=== PATIENT | female | born 1950 | race Caucasian/White ===

== ENCOUNTER 2019-07-12 10:35 | Inpatient (IN) | payer OTHER ==
[2019-07-12] MEDS ORDERED: KETOROLAC 30 MG/ML INJ ONE (11:08)
[2019-07-12 11:22] LABS: Absolute Lymphocytes (CBC) 1.2 K/uL (0.7-4.9); Basophils % 0.7 % (0-1.3); Hematocrit 40.8 % (36.0-45.0); Lymphocytes % 17.2 % (15.3-44.8); MPV 9.9 fL (7.6-11.3); RBC Red Blood Cell Count 4.47 M/uL (3.86-4.86)
[2019-07-12 11:31] LABS: Protime INR 0.97
--- NOTE | 2019-07-12 11:32 | RAD REPORT ---
EXAM DESCRIPTION: RAD - Chest Single View - 07/12/2019 11:26 am CLINICAL HISTORY: CHEST PAIN Chest pain. COMPARISON: No comparisons FINDINGS: Portable technique limits examination quality. The lungs are grossly clear. The heart is normal in size. No displaced fractures. IMPRESSION: No acute intrathoracic process suspected.
[2019-07-12 11:51] LABS: Albumin 3.5 g/dL (3.4-5.0); Bilirubin Direct 0.1 mg/dL (0-0.2); Bilirubin Total 0.4 mg/dL (0.2-1.0); Magnesium 2.2 mg/dL (1.8-2.4); Potassium 3.7 mmol/L (3.5-5.1); Protein, Total 7.5 g/dL (6.4-8.2)
[2019-07-12 11:53] LABS: Troponin (Emerg Dept Use Only) 0.65 ng/mL (0.0-0.045)
--- NOTE | 2019-07-12 12:26 | ER ---
Nurse's Notes [facility] Name: Carolyn Ortega Age: 69 yrs Sex: Female : 1950 Arrival Date: 07/12/2019 Time: 10:40 Bed 6 Private MD: Diagnosis: Non-ST elevation (NSTEMI) myocardial infarction;Acute Coronary Syndrome Presentation: 07/12 10:53 Presenting complaint: Patient states: got some upsetting news while at the bank and iw started having left sided chest pain about 35 minutes ago, feels like squeezing pain , no cardiac history. Transition of care: patient was not received from another setting of care. Onset of symptoms was July 12, 2019. Risk Assessment: Do you want to hurt yourself or someone else? Patient reports no desire to harm self or others. Initial Sepsis Screen: Does the patient meet any 2 criteria? No. Patient's initial sepsis screen is negative. Does the patient have a suspected source of infection? No. Patient's initial sepsis screen is negative. Care prior to arrival: None. 10:53 Method Of Arrival: Wheelchair iw 10:53 Acuity: DOMENICO 2 iw Triage Assessment: 10:51 General: Appears in no apparent distress. comfortable, obese, Behavior is cooperative, bp appropriate for age, anxious. Pain: Complains of pain in left lateral anterior chest. EENT: No deficits noted. Neuro: No deficits noted. Cardiovascular: Rhythm is sinus rhythm. Respiratory: No deficits noted. GI: No signs and/or symptoms were reported involving the gastrointestinal system. : No signs and/or symptoms were reported regarding the genitourinary system. Derm: No deficits noted. Musculoskeletal: No deficits noted. Historical: - Allergies: 11:00 PENICILLINS; iw 11:00 Sulfa (Sulfonamide Antibiotics); iw 11:00 Iodine; iw 11:00 benzocaine; iw 11:00 Hydrocodone-Acetaminophen; iw - Home Meds: 11:00 Tresiba FlexTouch U-100 100 unit/mL (3 mL) subcutaneous inpn [Active]; aspirin 81 mg iw Oral TbEC 1 tab once daily [Active]; levothyroxine 88 mcg tab 1 tab once daily [Active]; - PMHx: 11:00 Diabetes - IDDM; Hypothyroidism; iw - PSHx: 11:00 Hysterectomy; shoulder; iw - Immunization history:: Adult Immunizations not up to date. - Coronavirus screen:: The patient has NOT traveled to [place] in the past 14 days. Proceed with normal triage process as indicated. - Social history:: Smoking status: Patient denies any tobacco usage or history of. - Ebola Screening: : Patient negative for fever greater than or equal to 101.5 degrees Fahrenheit, and additional compatible Ebola Virus Disease symptoms Patient denies exposure to infectious person Patient denies travel to an Ebola-affected area in the 21 days before illness onset No symptoms or risks identified at this time. Screenin:00 Abuse screen: Denies threats or abuse. Denies injuries from another. Nutritional bp screening: No deficits noted. Tuberculosis screening: No symptoms or risk factors identified. Fall Risk None identified. Assessment: 11:00 General: SEE TRIAGE NOTE. Pain: Pain does not radiate. Pain began suddenly. bp 12:22 Reassessment: VS STABLE ON MONITOR. PT STATES CP LIKELY STRESS RELATED. bp 12:48 Reassessment: ADMIT MD AT B/S. bp 13:50 Reassessment: B/S ECHO IN PROCESS. ADMIT IN PROCESS. PT ASYMPTOMATIC AT THIS TIME. bp 15:35 Reassessment: ALL CURRENT ORDERS COMPLETED. ADMIT IN PROCESS, ORDERS PENDING. NO S/S bp ACUTE DISTRESS AT THIS TIME. 16:08 Reassessment: ADMIT COMPLETE. PT BERNY. bp Vital Signs: 10:51 BP 156 / 103; Pulse 74; Resp 13; Temp 98; Pulse Ox 100% ; Weight 99.79 kg; bp 12:21 BP 150 / 88; Pulse 77; Resp 15; Pulse Ox 98% ; bp 13:50 BP 149 / 97; Pulse 70; Resp 17; Pulse Ox 98% ; bp 15:34 BP 130 / 86; Pulse 80; Resp 21; Pulse Ox 100% ; bp 16:07 BP 141 / 92; Pulse 59; Resp 18; Pulse Ox 97% ; bp ED Course: 10:40 Patient arrived in ED. fj1 10:45 Greg Parisi, ANIRUDH is Primary Nurse. bp 10:51 Arm band placed on. bp 10:52 Eyal Espitia MD is Attending Physician. kdr 10:57 Triage completed. iw 11:00 Patient has correct armband on for positive identification. Placed in gown. Bed in low bp position. Call light in reach. Side rails up X2. electronic device monitor on. Pulse ox on. NIBP on. 11:05 EKG done, by medical imaging technologist. reviewed by Eyal Espitia MD. at1 11:10 Inserted saline lock: 22 gauge in right forearm, using aseptic technique. Blood bp collected. Patient maintains SpO2 saturation greater than 95% on room air. 12:24 Opal Gutiérrez MD is Hospitalizing Provider. kdr 15:37 No provider procedures requiring assistance completed. Patient admitted, IV remains in bp place. Administered Medications: 11:10 Drug: TORadol - Ketorolac 15 mg Route: IVP; Site: right forearm; bp 12:35 Follow up: Response: Pain is decreased bp 12:47 Drug: Lopressor 25 mg Route: PO; bp 15:38 Follow up: Response: No adverse reaction bp 12:48 Drug: Aspirin Chewable Tablet 324 mg Route: PO; bp 15:38 Follow up: Response: No adverse reaction bp Outcome: 12:25 Decision to Hospitalize by Provider. kdr 16:08 Admitted to Tele accompanied by tech, via wheelchair, room 414, with chart, Report bp called to EDWIN OLEARY 16:08 Condition: stable 16:08 Instructed on the need for admit. 16:20 Patient left the ED. bp Signatures: Eyal Espitia MD MD kdr Williams, Irene, RN Gillian Maxwell, oracle r12 developer EKG Tat1 Greg Parisi RN RN Cal Blum fj1
--- NOTE | 2019-07-12 12:26 | EDPHYS ---
Physician Documentation [facility] Name: Carolyn Ortega Age: 69 yrs Sex: Female : 1950 Arrival Date: 07/12/2019 Time: 10:40 Bed 6 Private MD: ED Physician Eyal Espitia HPI: 07/12 17:19 This 69 yrs old Female presents to ER via Wheelchair with complaints of Chest kdr Pain > 30 y/o. 17:19 The patient or guardian reports chest pain that is located primarily in the substernal kdr area, anterior chest wall, left. Onset: suddenly, this morning. The pain does not radiate. Associated signs and symptoms: Pertinent positives: nausea, shortness of breath, Pertinent negatives: cough, diaphoresis, dizziness, headache. The chest pain is described as aching, dull, a pressure. Duration: The patient or guardian reports a single episode, that is still ongoing. Modifying factors: The symptoms are alleviated by nothing. the symptoms are aggravated by nothing. Severity of pain: At its worst the pain was moderate in the emergency department the pain is unchanged. The patient has experienced a previous episode, approximately 10 years ago. Historical: - Allergies: 11:00 PENICILLINS; iw 11:00 Sulfa (Sulfonamide Antibiotics); iw 11:00 Iodine; iw 11:00 benzocaine; iw 11:00 Hydrocodone-Acetaminophen; iw - Home Meds: 11:00 Tresiba FlexTouch U-100 100 unit/mL (3 mL) subcutaneous inpn [Active]; aspirin 81 mg iw Oral TbEC 1 tab once daily [Active]; levothyroxine 88 mcg tab 1 tab once daily [Active]; - PMHx: 11:00 Diabetes - IDDM; Hypothyroidism; iw - PSHx: 11:00 Hysterectomy; shoulder; iw - Immunization history:: Adult Immunizations not up to date. - Coronavirus screen:: The patient has NOT traveled to [place] in the past 14 days. Proceed with normal triage process as indicated. - Social history:: Smoking status: Patient denies any tobacco usage or history of. - Ebola Screening: : Patient negative for fever greater than or equal to 101.5 degrees Fahrenheit, and additional compatible Ebola Virus Disease symptoms Patient denies exposure to infectious person Patient denies travel to an Ebola-affected area in the 21 days before illness onset No symptoms or risks identified at this time. ROS: 17:19 Constitutional: Negative for fever, chills, and weight loss, Eyes: Negative for injury, kdr pain, redness, and discharge, ENT: Negative for injury, pain, and discharge, Neck: Negative for injury, pain, and swelling, Respiratory: Negative for shortness of breath, cough, wheezing, and pleuritic chest pain, Abdomen/GI: Negative for abdominal pain, nausea, vomiting, diarrhea, and constipation, Back: Negative for injury and pain, : Negative for injury, bleeding, discharge, and swelling, MS/Extremity: Negative for injury and deformity, Skin: Negative for injury, rash, and discoloration, Neuro: Negative for headache, weakness, numbness, tingling, and seizure activity. Psych: Negative for depression, anxiety, suicide ideation, homicidal ideation, and hallucinations, Allergy/Immunology: Negative for hives, rash, and allergies, Endocrine: Negative for neck swelling, polydipsia, polyuria, polyphagia, and marked weight changes, Hematologic/Lymphatic: Negative for swollen nodes, abnormal bleeding, and unusual bruising. 17:19 Cardiovascular: Positive for chest pain, Negative for edema, orthopnea, palpitations, paroxysmal nocturnal dyspnea, acute changes. Exam: 17:19 Constitutional: This is a well developed, well nourished patient who is awake, alert, kdr and in no acute distress. Head/Face: Normocephalic, atraumatic. Eyes: Pupils equal round and reactive to light, extra-ocular motions intact. Lids and lashes normal. Conjunctiva and sclera are non-icteric and not injected. Cornea within normal limits. Periorbital areas with no swelling, redness, or edema. Neck: Trachea midline, no thyromegaly or masses palpated, and no cervical lymphadenopathy. Supple, full range of motion without nuchal rigidity, or vertebral point tenderness. No Meningismus. Chest/axilla: Normal chest wall appearance and motion. Nontender with no deformity. No lesions are appreciated. Cardiovascular: Regular rate and rhythm with a normal S1 and S2. No gallops, murmurs, or rubs. Normal PMI, no JVD. No pulse deficits. Respiratory: Lungs have equal breath sounds bilaterally, clear to auscultation and percussion. No rales, rhonchi or wheezes noted. No increased work of breathing, no retractions or nasal flaring. Abdomen/GI: Soft, non-tender, with normal bowel sounds. No distension or tympany. No guarding or rebound. No evidence of tenderness throughout. Back: No spinal tenderness. No costovertebral tenderness. Full range of motion. Skin: Warm, dry with normal turgor. Normal color with no rashes, no lesions, and no evidence of cellulitis. MS/ Extremity: Pulses equal, no cyanosis. Neurovascular intact. Full, normal range of motion. Neuro: Awake and alert, GCS 15, oriented to person, place, time, and situation. Cranial nerves II-XII grossly intact. Motor strength 5/5 in all extremities. Sensory grossly intact. Cerebellar exam normal. Normal gait. Psych: Awake, alert, with orientation to person, place and time. Behavior, mood, and affect are within normal limits. 17:19 ECG was reviewed by the Attending Physician. Vital Signs: 10:51 BP 156 / 103; Pulse 74; Resp 13; Temp 98; Pulse Ox 100% ; Weight 99.79 kg; bp 12:21 BP 150 / 88; Pulse 77; Resp 15; Pulse Ox 98% ; bp 13:50 BP 149 / 97; Pulse 70; Resp 17; Pulse Ox 98% ; bp 15:34 BP 130 / 86; Pulse 80; Resp 21; Pulse Ox 100% ; bp 16:07 BP 141 / 92; Pulse 59; Resp 18; Pulse Ox 97% ; bp MDM: 12:25 Patient medically screened. kdr 17:19 HEART Score: History: Highly Suspicious (2), ECG: Non specific repolarization kdr disturbance / LBTB / PM (1), Age: > or = 65 years (2), Risk Factors: > or = 3 Risk factors for atherosclerotic disease (2), Troponin: > or = 3 x Normal Limit (2), Total Score = 9. Data reviewed: vital signs, nurses notes. Counseling: I had a detailed discussion with the patient and/or guardian regarding: the historical points, exam findings, and any diagnostic results supporting the discharge/admit diagnosis, lab results, radiology results, the need for further work-up and treatment in the hospital. 07/12 10:52 Order name: Basic Metabolic Panel kdr 07/12 10:52 Order name: CBC with Diff kdr 07/12 10:52 Order name: LFT's kdr 07/12 10:52 Order name: Magnesium kdr 07/12 10:52 Order name: NT PRO-BNP kdr 07/12 10:52 Order name: PT-INR kdr 07/12 10:52 Order name: Troponin (emerg Dept Use Only) kdr 07/12 11:29 Order name: CBC with Automated Diff; Complete Time: 11:45 EDMS 07/12 11:36 Order name: Protime (+INR); Complete Time: 11:45 EDMS 07/12 11:54 Order name: Basic Metabolic Panel; Complete Time: 12:17 EDMS 07/12 11:54 Order name: Liver (Hepatic) Function; Complete Time: 12:17 EDMS / 11:54 Order name: Troponin (Emerg Dept Use Only); Complete Time: 12:17 EDMS 07/12 11:54 Order name: NT PRO-BNP; Complete Time: 12:17 EDMS 07/12 11:54 Order name: Magnesium; Complete Time: 12:17 EDMS 07/12 10:52 Order name: XRAY Chest (1 view) [facility] 07/12 10:52 Order name: EKG; Complete Time: 10:54 [facility] 07/12 10:52 Order name: Cardiac monitoring; Complete Time: 11:01 [facility] 07/12 10:52 Order name: EKG - Nurse/Tech; Complete Time: 11:01 [facility] 07/12 10:52 Order name: IV Saline Lock; Complete Time: 11:14 [facility] 07/12 10:52 Order name: Labs collected and sent; Complete Time: 11:14 [facility] 07/12 10:52 Order name: O2 Per Protocol; Complete Time: 11:01 [facility] 07/12 10:52 Order name: O2 Sat Monitoring; Complete Time: 11:02 [facility] 07/12 11:35 Order name: RAD; Complete Time: 11:45 EDMS 07/12 15:40 Order name: Hemoglobin A1c EDOR 07/12 15:41 Order name: Thyroid Stimulating Hormone EDMS EC:19 Rate is 78 beats/min. Rhythm is regular, Normal Sinus Rhythm with No ectopy. QRS [place] kdr is Normal. [place] interval is normal. QRS interval is normal. Clinical impression: NSR w/ Non-specific ST/T Changes. Administered Medications: 11:10 Drug: TORadol - Ketorolac 15 mg Route: IVP; Site: right forearm; bp 12:35 Follow up: Response: Pain is decreased bp 12:47 Drug: Lopressor 25 mg Route: PO; bp 15:38 Follow up: Response: No adverse reaction bp 12:48 Drug: Aspirin Chewable Tablet 324 mg Route: PO; bp 15:38 Follow up: Response: No adverse reaction bp Disposition: 07/12/19 12:25 Hospitalization ordered by Opal Gutiérrez for Inpatient Admission. Preliminary diagnosis are Non-ST elevation (NSTEMI) myocardial infarction, Acute Coronary Syndrome. - Bed requested for Telemetry/MedSurg (Inpatient). - Status is Inpatient Admission. bp - Condition is Fair. - Problem is new. - Symptoms are resolved. Signatures: Dispatcher [employer] EDSarah Peralta RN RN dw Eyal Espitia MD MD kdr Tyra Shelley RN RN iw Greg Parisi RN RN bp Corrections: (The following items were deleted from the chart) 15:36 12:25 Hospitalization Ordered by Opal Gutiérrez MD for Inpatient Admission. Preliminary dw diagnosis is Non-ST elevation (NSTEMI) myocardial infarction; Acute Coronary Syndrome. Bed requested for Telemetry/MedSurg (Inpatient). Status is Inpatient Admission. Condition is Fair. Problem is new. Symptoms are resolved. kdr 16:20 15:36 07/12/2019 12:25 Hospitalization Ordered by Opal Gutiérrez MD for Inpatient Admission. bp Preliminary diagnosis is Non-ST elevation (NSTEMI) myocardial infarction; Acute Coronary Syndrome. Bed requested for Telemetry/MedSurg (Inpatient). Status is Inpatient Admission. Condition is Fair. Problem is new. Symptoms are resolved. dw
[2019-07-12] MEDS ORDERED: ASPIRIN 81 MG CHEWABLE TABLET ONE (12:42)
[2019-07-12] MEDS ORDERED: METOPROLOL TAR 25 MG TAB ONE (12:42)
[2019-07-12] MEDS ORDERED: ONDANSETRON 4 MG/2 ML VIAL IV PRN (13:11)
[2019-07-12] MEDS ORDERED: ACETAMINOPHEN 500 MG TAB PO PRN (13:11)
[2019-07-12] MEDS: INSULIN -REGULAR HUMAN 50 UNIT/0.5 ML ML SQ SCH ×2 (16:30→20:27)
[2019-07-12] MEDS: METOPROLOL TAR 25 MG TAB PO SCH (17:30)
[2019-07-12 19:07] VITALS: BMI 35.1
[2019-07-12 19:24] LABS: Urine Appearance CLEAR; Urine Bilirubin NEGATIVE (NEG); Urine Blood NEGATIVE (NEG); Urine Color YELLOW; Urine Glucose NEGATIVE (NEG); Urine Protein NEGATIVE (NEG); Urine Specific Gravity 1.015 (1.005-1.030); Urine Urobilinogen 0.2 mg/dL (0.2-1.0); Urine pH 5.5 (5.0-7.0)
[2019-07-12 19:26] LABS: Urine Microscopic Reflex ORDER UMIC
[2019-07-12 19:59] LABS: Urine Amorphous Sediment 1+ /HPF (NONE SEEN); Urine Bacteria 20-50 /HPF (<20); Urine Culture Reflex Order REFLEXED; Urine Mucus 3+ /HPF (NONE SEEN); Urine RBC <5 /HPF (NONE SEEN)
[2019-07-12] MEDS: ALPRAZOLAM 0.25 MG TABLET PO PRN (20:20)
[2019-07-12] MEDS ORDERED: ENOXAPARIN 100 MG/ML SYR SQ SCH ×2 (20:41→20:43)
[2019-07-12] MEDS: ENOXAPARIN 100 MG/ML SYR SQ SCH (21:34)
[2019-07-12] MEDS: TRESIBA 25 UNIT SQ SCH (21:46)
--- NOTE | 2019-07-12 23:32 | HP ---
Date of Admission: 07/12/2019 Chief Complaint: Chest pain. History Of Present Illness: This patient is a 69-year-old lady who presented for chest pain. She has a history of hypertension, diabetes, and possible CAD. Patient did not take medication for high blood pressure. Patient said that she received scam phone call this morning and then became very upset. She became so concerned and then experienced chest pain around 9:30 this morning. The chest pain is located in the anterior left chest. She described the chest pain as squeezing. There is no radiation. No shortness of breath. No fever or chills. No runny nose or sore throat. The intensity of pain is about 8/10. She did not take medication for pain. This patient presented to the emergency room for persistent chest pain. She denied recent travel or sick contact. No diarrhea or dysuria. No dizziness or syncope. In the ED, her vitals are relatively stable. Pulse 74, respiratory rate 13, temperature 98, blood pressure 158/88. WBC 7.3, hemoglobin 13.4. Sodium 142, potassium 3.7, creatinine 0.86. Liver enzyme within normal range. Her troponin was elevated, which is 0.65. Chest x-ray and EKG unremarkable. She was admitted for non- STEMI. Past Medical History: 1. Hypertension. 2. Diabetes. 3. Possible CAD. Home Medication: Please see home medication list. Family History: Noncontributory. Review of Systems: Eleven-point system unremarkable except mentioned in HPI. Social History: Patient living by herself. No smoking. No alcohol use. Allergies: NO KNOWN ALLERGY. Physical Examination: General: Patient awake, alert, oriented x3. HEENT: Atraumatic, normocephalic. PERRLA. EOMI. Neck: Supple. No JVD. Chest: Clear to auscultation. No labored breathing. No respiratory distress. No wheezing. Heart: Normal S1 and S2. Regular rhythm. No murmur. Abdomen: Soft, nontender. Bowel sounds present. Extremities: No edema. No cyanosis. No warmness. Neuro: Patient awake, alert, oriented x3. Nonfocal. Cranial nerves 2 through 12 intact. Psych: Mood stable. No anxiety or agitation. Skin: No rashes or eczema. Laboratory Data: WBC 7.3, hemoglobin 13.4, INR 0.97. Sodium 142, potassium 3.7 , bicarb 25, creatinine 0.86, glucose 92. Liver enzyme within normal range. Troponin 0.65. NT-proBNP 85. Assessment/plan: 07/12/19: This patient is a 69-year-old lady with history of diabetes and hypertension, presented for chest pain. Troponin 0.65, indicating non-ST- elevation myocardial infarction. She received aspirin. Echo was ordered. We will follow the troponin series. Cardiology was consulted. 1. [id number] myocardial infarction. Troponin 0.65. EKG did not see ST elevation. She has a history of hypertension and diabetes. We will follow troponin service. Echo was ordered. Eligibility Manager was consulted. Started aspirin. We will check lipid panel in the morning. 2. Hypertension. Blood pressure is at higher side. Patient did not take BP medication at home. I will start metoprolol 25 mg b.i.d. 3. Diabetes. Started sliding scale. We will check A1c in the morning. We will resume home diabetic medication. 4. Deep venous thrombosis prophylaxis with Lovenox. Further plan will be based on patient's condition. QT/MODL Voice ID: [id number] MTDD
[2019-07-13 04:14] LABS: Basophils % 0.8 % (0-1.3); Hematocrit 36.2 % (36.0-45.0); Lymphocytes % 36.2 % (15.3-44.8); MPV 10.6 fL (7.6-11.3); RBC Red Blood Cell Count 3.96 M/uL (3.86-4.86)
[2019-07-13 04:33] LABS: Albumin 2.9 g/dL (3.4-5.0); Bilirubin Total 0.4 mg/dL (0.2-1.0); Magnesium 2.2 mg/dL (1.8-2.4); Phosphorus 3.6 mg/dL (2.5-4.9); Protein, Total 6.2 g/dL (6.4-8.2)
[2019-07-13 04:40] LABS: Troponin I 5.02 ng/mL (0.0-0.045)
[2019-07-13] MEDS: METOPROLOL TAR 25 MG TAB PO SCH ×2 (05:20→17:26)
[2019-07-13] MEDS: INSULIN -REGULAR HUMAN 50 UNIT/0.5 ML ML SQ SCH ×4 (07:30→21:00)
--- NOTE | 2019-07-13 07:46 | EKG ---
Test Date: 2019-07-12 Test Time: 20:54:34 Senior Major Gifts Officer: RT Adams MEASUREMENT RESULTS: Intervals: Rate: 60 VA: 150 QRSD: 120 QT: 450 QTc: 450 [place]: P: 1 VA: 150 QRS: -63 T: 9 INTERPRETIVE STATEMENTS: Normal sinus rhythm Left axis deviation Left ventricular hypertrophy with QRS widening Abnormal ECG No previous ECG available for comparison Electronically Signed On 07-13-19 07:46:40 COMMERCIAL LENDING VICE PRESIDENT by Adal Umanzor
--- NOTE | 2019-07-13 08:29 | ECHO ---
HEIGHT: 5 ft 2 in WEIGHT: 192 lb 0 oz DATE OF STUDY: 07/12/[address]: Opal Gutiérrez MD 2-DIMENSIONAL: YES M.MODE: YES DOPPLER: YES COLOR FLOW: YES TDS: PORTABLE: DEFINITY: BUBBLE STUDY: DIAGNOSIS: CHEST PAIN CARDIAC HISTORY: CATHERIZATION: YES SURGERY: NO PROSTHETIC VALVE: NO PACEMAKER: NO MEASUREMENTS (cm) DIASTOLIC (NORMALS) SYSTOLIC (NORMALS) IVSd 1.0 (0.6-1.2) LA Diam 3.1 (1.9-4.0) LVEF 35-39% LVIDd 4.7 (3.5-5.7) LVIDs 3.6 (2.0-3.5) %FS 23% LVPWd 1.0 (0.6-1.2) Ao Diam 2.5 (2.0-3.7) 2 DIMENSIONAL ASSESSMENT: RIGHT ATRIUM: NORMAL LEFT ATRIUM: NORMAL RIGHT VENTRICLE: NORMAL LEFT VENTRICLE: NORMAL TRICUSPID VALVE: NORMAL MITRAL VALVE: NORMAL PULMONIC VALVE: NORMAL AORTIC VALVE: NORMAL PERICARDIAL EFFUSION: NONE AORTIC ROOT: NORMAL LEFT VENTRICULAR WALL MOTION: ANTERIOR, APICAL AKINESIS. DOPPLER/COLOR FLOW: MILD AORTIC, MITRAL AND TRICUSPID REGURGITATION. ESTIMATED RIGHT VENTRICULAR SYSTOLIC PRESSURE 45 mmHg (MILD PULMONARY HYPERTENSION). COMMENTS: DEPRESSED LEFT VENTRICULAR EJECTION FRACTION WITH WALL MOTION ABNORMALITY. MILD AORTIC, MITRAL AND TRICUSPID REGURGITATION. MILD PULMONARY HYPERTENSION. TECHNOLOGIST: SUGAR KELLY
[2019-07-13] MEDS ORDERED: ENOXAPARIN 40 MG/0.4 ML SQ SCH (09:00)
--- NOTE | 2019-07-13 09:22 | EKG ---
Test Date: 2019-07-13 Test Time: 07:52:08 Camp Guard: LJ MEASUREMENT RESULTS: Intervals: Rate: 50 ND: 164 QRSD: 110 QT: 498 QTc: 454 [place]: P: 44 ND: 164 QRS: -72 T: -35 INTERPRETIVE STATEMENTS: Sinus bradycardia Left axis Cannot rule out anterior infarct T wave abnormality, consider inferolateral ischemia Abnormal ECG Compared to ECG 07/12/2019 20:54:34 no significant change from previous ECG Electronically Signed On 07-13-19 09:22:13 CRANBERRY BOG SUPERVISOR by Adal Umanzor
[2019-07-13] MEDS: ASPIRIN EC 81 MG TAB PO SCH (09:38)
[2019-07-13] MEDS: LEVOTHYROXINE SOD 0.088 MG TAB PO SCH (09:38)
[2019-07-13] MEDS: ENOXAPARIN 100 MG/ML SYR SQ SCH (09:39)
--- NOTE | 2019-07-13 10:59 | P.PN ---
Subjective Date of Service: 07/13/19 Chief Complaint: chest pain Subjective: No new changes, Doing well Review of Systems General: Unremarkable Eyes: Unremarkable ENT: Unremarkable Respiratory: Unremarkable Cardiovascular: Unremarkable Gastrointestinal: Unremarkable Genitourinary: Unremarkable Musculoskeletal: Unremarkable Integumentary: Unremarkable Neurological: Unremarkable Physical Examination - Vital Signs Temperature: 97.0 F Blood Pressure: 104/53 Pulse: 47 Respirations: 16 Pulse Ox (%): 95 - Physical Exam General: Alert, In no apparent distress, Oriented x3, Cooperative HEENT: Atraumatic, Normocephalic, PERRLA, Mucous membr. moist/pink, EOMI Neck: Supple, 2+ carotid pulse no bruit, JVD not distended, No LAD Respiratory: Clear to auscultation bilaterally, Normal air movement Cardiovascular: No edema, Normal pulses, Regular rate/rhythm, Normal S1 S2 Gastrointestinal: Normal bowel sounds, Soft and benign, Non-distended, No masses , No rebound Musculoskeletal: No clubbing, No swelling Integumentary: No rashes, No breakdown, No significant lesion Neurological: Normal gait, Normal speech, Normal strength at 5/5 x4 extr, Normal tone, Normal affect Lymphatics: No axilla or inguinal lymphadenopathy - Studies Laboratory Data (last 24 hrs) 07/12/19 11:10: PT 11.5, INR 0.97 07/12/19 11:10: WBC 7.3, Hgb 13.4, Hct 40.8, Plt Count 226 07/12/19 11:10: Sodium 142, Potassium 3.7, BUN 7, Creatinine 0.86, Glucose 92, Magnesium 2.2, Total Bilirubin 0.4, AST 15, ALT 16, Alkaline Phosphatase 79 Assessment And Plan - Plan Assessment/plan: 07/12/19: This patient is a 69-year-old lady with history of diabetes and hypertension, presented for chest pain. Troponin 0.65, indicating non-ST- elevation myocardial infarction. She received aspirin. Echo was ordered. We will follow the troponin series. Cardiology was consulted. 07/13/19: Patient is doing well. No chest pain or shortness of breath. Troponin was elevated to 6 point 0 5. Inspector Health Care Facilities was consulted and planned for cardiac catheterization in the morning. 1. [id number] myocardial infarction. Troponin 0.65->6.13->5.09->5.02. EKG did not see ST elevation. She has a history of hypertension and diabetes. Echo was ordered. Inspector Health Care Facilities was consulted. Started aspirin. Started full dose of lovenox. Planned for cardiac cath in AM 2. Hypertension. Blood pressure is at higher side. Patient did not take BP medication at home. On metoprolol 25 mg b.i.d. 3. Diabetes. Started sliding scale. A1c 7.2. On home insulin regimen 4. Deep venous thrombosis prophylaxis with Lovenox. Further plan will be based on patient's condition. Discharge Plan: Home - Code Status/Comfort Care Code Status Assessed: Yes Code Status: Full Code Critical Care: Yes Time Spent Managing PTS Care (In Minutes): 30
--- NOTE | 2019-07-13 11:42 | EKG ---
Test Date: 2019-07-12 Test Time: 10:52:20 Water Well Driller: LJ MEASUREMENT RESULTS: Intervals: Rate: 76 [place]: 148 QRSD: 118 QT: 394 QTc: 443 [place]: P: 55 [place]: 148 QRS: -59 T: 52 INTERPRETIVE STATEMENTS: Normal sinus rhythm Left anterior fascicular block Left ventricular hypertrophy with QRS widening Abnormal ECG No previous ECG available for comparison Electronically Signed On 07-13-19 11:41:03 REGISTERED NURSING PROFESSOR by Adal Umanzor
--- NOTE | 2019-07-13 12:04 | CON ---
History Of Present Illness: Ms. Ortega is 69. She was going through some extreme emotional distre ss. She was a victim of telephone hacker. They got her convinced that she was going to be arrested if she did not go to the bank and turnover all kinds of information and her bank account was closed, so she was extremely distraught. While she was crying in front of the bank tellers, she started to h ave chest pain. She came to the hospital and her enzymes have gone up. A similar episode occurred t o her in 2009 or 2010. She lived in [place] then. She underwent a cardiac cath and the doctor told her her arteries were perfectly fine. At that time, her MN was attributed to emotional distress due to the of her daughter. The patient has never had a stent put in her heart. She has hypothyro idism and diabetes. Takes levothyroxine, aspirin and Tresiba. Allergies: SHE IS ALLERGIC TO ACETAMINOPHEN, BENZOCAINE, CODEINE, HYDROCODONE, X-RAY CONTRAST MATERI AL. Physical Examination: General: She is alert, oriented, pleasant, not in distress, 5 feet 2 inches, 192 pounds, obese. Lungs: Clear. Heart: Within normal limits. No carotid bruit. Extremities: Reveal distal pulses. She does not have a good Shawn sign. I think she needs to have a heart catheterization. Her blood and plasma laboratory assistant is having scheduled maintenance toda y, so we will try to do it tomorrow. Hopefully, we will find the same thing that was found in 2009. The arteries are normal, in which case we will attribute this to a broken heart type heart attack or tako tsubo myocardial infarction. PHILIPPE/LARRY Voice ID: [id number] Report ID: [id number]
[2019-07-13] MEDS: TRESIBA 25 UNIT SQ SCH ×2 (20:56→21:00)
[2019-07-13] MEDS ORDERED: INSULIN DEGLUDEC 25 UNIT SQ SCH (21:00)
[2019-07-13] MEDS: ALPRAZOLAM 0.25 MG TABLET PO PRN (21:13)
[2019-07-14 05:58] LABS: Absolute Lymphocytes (CBC) 2.1 K/uL (0.7-4.9); Basophils % 0.7 % (0-1.3); MPV 10.1 fL (7.6-11.3); RBC Red Blood Cell Count 4.08 M/uL (3.86-4.86)
[2019-07-14] MEDS: METOPROLOL TAR 25 MG TAB PO SCH ×2 (06:00→17:20)
[2019-07-14] MEDS: LEVOTHYROXINE SOD 0.088 MG TAB PO SCH (06:00)
[2019-07-14] MEDS: ASPIRIN EC 81 MG TAB PO SCH (06:06)
[2019-07-14 06:21] LABS: Potassium 4.1 mmol/L (3.5-5.1)
[2019-07-14 06:22] LABS: Troponin I 4.45 ng/mL (0.0-0.045)
[2019-07-14] MEDS ORDERED: predniSONE 20 MG TAB PO ONE (06:46)
[2019-07-14] MEDS: INSULIN -REGULAR HUMAN 50 UNIT/0.5 ML ML SQ SCH ×3 (07:30→17:08)
[2019-07-14] MEDS ORDERED: HEPA 1000U/500MLS 2,000 UNIT/1,000 ML BAG IV ONE (07:58)
[2019-07-14] MEDS ORDERED: LIDOCAINE 1% MPF 30 ML VIAL ONE (07:58)
[2019-07-14] MEDS ORDERED: MIDAZOLAM HCL 2 MG/2 ML INJ ONE ×2 (09:00→09:17)
[2019-07-14] MEDS ORDERED: NA CHLORIDE 0.9% 0 ML ONE (09:01)
[2019-07-14] MEDS ORDERED: NITROGLYCERIN 100 MCG/ML SYR (for cath lab use only) IV ONE (09:01)
[2019-07-14] MEDS ORDERED: FENTANYL CITR 100 MCG/2 ML ONE (09:01)
[2019-07-14] MEDS ORDERED: METHYLPREDNISOLONE 125 MG INJ ONE (09:01)
[2019-07-14] MEDS ORDERED: ATROPINE SULF 1 MG/10 ML SYR IV ONE (09:01)
[2019-07-14] MEDS ORDERED: NITROGLYCERIN/D5W 0 MG/0 ML BTL IV ONE (09:01)
[2019-07-14] MEDS ORDERED: NA CHLORIDE 0.9% 500 ML ONE (09:03)
[2019-07-14 10:39] VITALS: O2SAT 97
[2019-07-14] MEDS ORDERED: NA CHLORIDE 0.9% 1,000 ML IV SCH (13:00)
[2019-07-14] MEDS ORDERED: ACETAMINOPHEN 325 MG TABLET PO PRN (13:00)
[2019-07-14] MEDS ORDERED: NITROGLYCERIN 0.4 MG/TAB SL PRN (13:00)
--- NOTE | 2019-07-14 13:39 | P.DS ---
Admission Date: 07/12/19 Discharge Date: 07/14/19 Disposition: ROUTINE DISCHARGE Discharge Condition: GOOD Reason for Admission: chest pain Procedures: cardiac cath - Problems (1) Takotsubo syndrome Current Visit: Yes Status: Acute (2) NSTEMI (non-ST elevated myocardial infarction) Current Visit: Yes Status: Acute (3) HTN (hypertension) Current Visit: Yes Status: Acute (4) DM2 (diabetes mellitus, type 2) Current Visit: Yes Status: Acute Brief History of Present Illness: This patient is a 69-year-old lady who presented for chest pain. She has a history of hypertension, diabetes, and possible CAD. Patient did not take medication for high blood pressure. Patient said that she received scam phone call this morning and then became very upset. She became so concerned and then experienced chest pain around 9:30 this morning. The chest pain is located in the anterior left chest. She described the chest pain as squeezing. There is no radiation. No shortness of breath. No fever or chills. No runny nose or sore throat. The intensity of pain is about 8/10. She did not take medication for pain. This patient presented to the emergency room for persistent chest pain. She denied recent travel or sick contact. No diarrhea or dysuria. No dizziness or syncope. In the ED, her vitals are relatively stable. Pulse 74, respiratory rate 13, temperature 98, blood pressure 158/88. WBC 7.3, hemoglobin 13.4. Sodium 142, potassium 3.7, creatinine 0.86. Liver enzyme within normal range. Her troponin was elevated, which is 0.65. Chest x-ray and EKG unremarkable. She was admitted for non-STEMI. Hospital Course: Patient received scam phone call and then became very upset. She was stressed out and then experienced chest pain. In the ED, her troponin was elevated to 0.65. She was admitted and we started metoprolol, aspirin. Her troponin was up to 6.13->5.09->4.43. Cardiology was consulted. Echo demonstrated ejection fraction 35-39%. Electrical Systems Drafter believes that this is stress related cardiomyopathy. [place] head was performed which demonstrated patent coronary artery disease. She was suffering from takotsubo cardiomyopathy. Now she is doing very well. No anxiety or agitation. No chest pain or shortness of breath. Electrical Systems Drafter agreed to discharge patient to home. Patient denied home health. Vital Signs/Physical Exam: Temp Pulse Resp BP Pulse Ox 96.9 F 61 16 114/59 L 97 07/14/19 12:00 07/14/19 12:00 07/14/19 12:00 07/14/19 12:00 07/14/19 12:00 General: Alert, In no apparent distress, Oriented x3, Cooperative HEENT: Atraumatic, Normocephalic, PERRLA, Mucous membr. moist/pink Neck: Supple, 2+ carotid pulse no bruit, JVD not distended, No Thyromegaly, No LAD Respiratory: Clear to auscultation bilaterally, Normal air movement Cardiovascular: No edema, Normal pulses, Regular rate/rhythm, Normal S1 S2, Abnormal S3 Gastrointestinal: Normal bowel sounds, Hypoactive, Non-distended Musculoskeletal: No clubbing, No swelling, No contractures Integumentary: No rashes, No breakdown, No significant lesion Neurological: Normal gait, Normal speech, Normal strength at 5/5 x4 extr, Normal tone, Sensation intact, Cranial nerves 3-12 intact, Normal reflexes 2+ Laboratory Data at Discharge: WBC 6.0 K/uL (4.3-10.9) D 07/14/19 04:40 Hgb 12.3 g/dL (12.0-15.0) 07/14/19 04:40 Hct 38.0 % (36.0-45.0) 07/14/19 04:40 Plt Count 189 K/uL (152-406) 07/14/19 04:40 PT 11.5 SECONDS (9.5-12.5) 07/12/19 11:10 INR 0.97 07/12/19 11:10 Sodium 142 mmol/L (136-145) 07/14/19 04:40 Potassium 4.1 mmol/L (3.5-5.1) 07/14/19 04:40 BUN 14 mg/dL (7-18) 07/14/19 04:40 Creatinine 0.97 mg/dL (0.55-1.3) 07/14/19 04:40 Glucose 69 mg/dL (74-106) L 07/14/19 04:40 Phosphorus 3.6 mg/dL (2.5-4.9) 07/13/19 03:22 Magnesium 2.2 mg/dL (1.8-2.4) 07/13/19 03:22 Total Bilirubin 0.4 mg/dL (0.2-1.0) 07/13/19 03:22 AST 27 U/L (15-37) 07/13/19 03:22 ALT 16 U/L (12-78) 07/13/19 03:22 Alkaline Phosphatase 66 U/L (45-117) 07/13/19 03:22 Troponin I 4.45 ng/mL (0.0-0.045) H* 07/14/19 04:40 Triglycerides 88 mg/dL (<150) 07/13/19 03:22 Cholesterol 186 mg/dL (<200) 07/13/19 03:22 HDL Cholesterol 72 mg/dL (40-60) H 07/13/19 03:22 Cholesterol/HDL Ratio 2.58 07/13/19 03:22 Home Medications: Aspirin Chewable [Aspirin Chewable*] 81 mg PO DAILY 07/12/19 Insulin Degludec [Tresiba Flextouch U-100] 25 unit SQ BEDTIME 07/12/19 Levothyroxine [Synthroid*] 88 mcg PO BSMOO6AM 07/12/19 Metoprolol Tartrate [Lopressor*] 25 mg PO BID 6AM 6PM #60 tab 07/14/19 Nitroglycerin [Nitrostat*] 0 mg SL UD PRN #30 tab 07/14/19 New Medications: Metoprolol Tartrate [Lopressor*] 25 mg PO BID 6AM 6PM #60 tab Nitroglycerin [Nitrostat*] 0 mg SL UD PRN #30 tab PRN Reason: Pain Scale 2-4 (Mild) Patient Discharge Instructions: 1. Please follow farm specialist in 2 weeks. 2. Please follow up PCP in 1 weeks. 3. Please call ED if having chest pain Diet: AHA Activity: Ad cesar Time spent managing pt's care (in minutes): 33
[2019-07-14] MEDS ORDERED: ACETAMINOPHEN 500 MG TAB ONE (15:36)
[2019-07-14 16:10] VITALS: BP 133/78; TEMP 97.3
--- NOTE | 2019-07-14 21:02 | OP ---
Surgeon: Adal Umanzor MD Identification: Ms. Ortega is 69. Procedures: Left heart catheterization with coronary, left ventricular angiography. Findings: Normal coronary arteries. LVEF about 50% with anterior and apical hypokinesis consistent with Takotsubo syndrome or apical ballooning DC with normal coronaries. Procedure Findings: The patient's coronary arteries are completely normal. Left ventricular end-farheen stolic pressure was normal. Anterior apical hypokinesis. Procedure In Detail: The patient was brought to the cardiac dental laboratory worker fasting, sedated with Versed an d fentanyl. Prepared and draped in usual sterile fashion. Right femoral approach was used. About 1 8 cc of lidocaine were used to anesthetize the skin around the right femoral artery. The artery was entered using an 18-gauge needle, cannulated with a J-wire and a 4-[place] sheath was placed. We used a 4-[place] JL4, 4-[place] 3DRC, and 4-[place] angled pigtail to do the procedure. At the end of the p rocedure, catheters were withdrawn over a wire. An angiogram was obtained. There is a 50% lesion in the right iliac. It was not treated with a stent. It was not designated to be severe enough concei vable with retrograde trauma from trying to pass a wire, not certain about that, but we know it is no t hemodynamically significant. Decided not to stent it. We closed the arteriotomy using an Angio-Se al. Estimated Blood Loss: 10 cc. Spot Sprayer: Adriel Molina. PHILIPPE/LARRY Voice ID: [id number] Report ID: [id number]
== END 2019-07-14 18:55 | disposition home or self-care (01) | DRG 287 ==
LOC: ER 10:35 → ERHOLD 13:53 → 4TH 16:08
PROVIDERS: ADMIT Internal Medicine; ATTEND Internal Medicine
PROC: 4A023N7 Measurement of Cardiac Sampling and Pressure, Left Heart, Percutaneous Approach (ICD-10-PCS; principal; 2019-07-14)
PROC: B205YZZ Plain Radiography of Left Heart using Other Contrast (ICD-10-PCS; 2019-07-14)
PROC: B201YZZ Plain Radiography of Multiple Coronary Arteries using Other Contrast (ICD-10-PCS; 2019-07-14)
DX: I51.81 Takotsubo syndrome (principal); I10 Essential (primary) hypertension; E11.9 Type 2 diabetes mellitus without complications
CPT/HCPCS: 36415; 71045; 80048; 80053; 80061; 80076; 81003; 81015; 82947; 83036; 83735; 83880; 84100; 84443; 84484; 85025; 85610; 87086; 87088; 93005; 93306; 93458; 94760; 96374; 99285; C1760; C1893; J0583; J1650; J2250; J2930; J3010; J7040; J7512

== ENCOUNTER 2021-08-21 04:24 | Emergency (ER) | payer OTHER ==
--- OUTSIDE RECORDS SUMMARY | 2021-08-21 04:27 | XMS REPORT | Continuity of Care Document ---
:1950 Author Organization [facility] t Address [address] [place] [address] Care Team Providers Name Role Phone Kenya Delgado Attending Clinician Unavailable Problems This patient has no known problems. Allergies, Adverse Reactions, Alerts This patient has no known allergies or adverse reactions. Medications This patient has no known medications. Procedures This patient has no known procedures. Encounters Start End Encounter Admission Attending Care Care Encounter Source Date/Time Date/Time Type Type Clinicians Facility Department ID 2021-06-25 Outpatient Page, [facility] [id number] [facility] 14:24:50 [place] [address] [facility] 2021-06-25 Outpatient Page, [facility] [id number] [facility] 12:42:21 [place] [address] [facility] 2021-06-25 Outpatient Sandy [facility] [id number] [facility] [address] 11:25:38 [place] [address] [facility] 2021-06-25 Outpatient Sandy [facility] [id number] [facility] [address] 11:25:13 [place] [address] [facility] 2021-06-25 Outpatient Page, [facility] [id number] [facility] [address] 11:09:02 [place] [address] [facility] 2021-06-25 Outpatient Sandy [facility] [id number] [facility] [address] 11:08:47 [place] [address] [facility] 2021-06-25 Outpatient Sandy, [facility] [id number] [facility] [address] 11:00:11 [place] [address] [facility] Results This patient has no known results.
[2021-08-21] MEDS ORDERED: BACI/NEOMYCIN/POLY OINT 15GM TOP ONE (05:59)
--- NOTE | 2021-08-21 06:00 | ER ---
Nurse's Notes [facility] Name: Carolyn Ortega Age: 71 yrs Sex: Female : 1950 Arrival Date: 08/21/2021 Time: 04:25 Bed 15 Private MD: Diagnosis: Fall on same level, unspecified;Contusion of other part of head;Laceration without foreign body of other part of head Presentation: 08/21 04:54 Chief complaint: EMS states: Called for patient who hit head on bathtub after getting lp1 up to fast off of toilet; Denies LOC; Laceration above left eyebrow, bleeding controlled. Coronavirus screen: At this time, the client does not indicate any symptoms associated with coronavirus-19. Ebola Screen: No symptoms or risks identified at this time. Risk Assessment: Do you want to hurt yourself or someone else? Patient reports no desire to harm self or others. Onset of symptoms was August 21, 2021. 04:54 Method Of Arrival: EMS: [facility] lp1 04:54 Acuity: DOMENICO 3 lp1 05:20 Care prior to arrival: Bleeding of injury controlled. Mechanism of Injury: Fall Toilet ke1 to floor face down. Trauma event details: Injury occurred: at home. Injury occurred: August 21, 2021 Injury occurred at: 03:10. 05:21 Initial Sepsis Screen: Does the patient meet any 2 criteria? No. Patient's initial ke1 sepsis screen is negative. Does the patient have a suspected source of infection? No. Patient's initial sepsis screen is negative. Historical: - Allergies: 04:55 benzocaine; lp1 04:55 Hydrocodone-Acetaminophen; lp1 04:55 Iodine; lp1 04:55 PENICILLINS; lp1 04:55 Sulfa (Sulfonamide Antibiotics); lp1 - Home Meds: 04:55 levothyroxine 175 mcg oral tab once daily [Active]; Tresiba FlexTouch U-100 100 unit/mL lp1 (3 mL) subcutaneous inpn [Active]; metoprolol tartrate 25 mg Oral tab 1 tab 2 times per day [Active]; - PMHx: 04:55 Diabetes - IDDM; Hypothyroidism; Hypertensive disorder; lp1 - PSHx: 04:55 hysterecomy; lp1 - Immunization history:: Client reports having NOT received the Covid vaccine. - Social history:: Smoking status: Patient denies any tobacco usage or history of. - Immunization history: Last tetanus immunization: unknown. - Family history:: not pertinent. Screenin:16 Abuse screen: Denies threats or abuse. Tuberculosis screening: No symptoms or risk ke1 factors identified. 05:21 Nutritional screening: No deficits noted. Fall Risk Fall in past 12 months (25 points). ke1 No secondary diagnosis (0 pts). IV access (20 points). Ambulatory Aid- None/Bed Rest/Nurse Assist (0 pts). Gait- Normal/Bed Rest/Wheelchair (0 pts) Mental Status- Oriented to own ability (0 pts). Total Richards Fall Scale indicates High Risk Score (45 or more points). Fall prevention measures have been instituted. Side Rails Up X 2 Placed Close to Nursing Station Frequent Obs/Assessments Occuring. Primary Survey: 05:13 NO uncontrolled hemorrhage observed. Breathing/Chest: Respiratory pattern: regular, ke1 Respiratory effort: spontaneous, unlabored, Breath sounds: clear, bilaterally. Chest inspection: symmetrical rise and fall of the chest. Circulation: Heart tones present. Pulses: palpable right radial artery, right posterior tibial artery, left radial artery and left posterior tibial artery. Disability Alert. Exposure/Environment: There is no evidence of uncontrolled external bleeding. 05:19 Reassessment Breathing/Chest Respiratory pattern Regular Circulation Pulses Palpable ke1 Disability Alert. Secondary Survey: 05:15 HEENT: Head Other bruise Left eye area, skin opening forehead. Gastrointestinal: No ke1 deficits noted. : No deficits noted. Musculoskeletal: No deficits noted. Assessment: 05:10 General: Appears Behavior is calm, cooperative. Pain: Complains of pain in head Pain ke1 currently is 3 out of 10 on a pain scale. at worst was 3 out of 10 on a pain scale. level that patient reports is acceptable is 3 out of 10 on a pain scale. Neuro: Level of Consciousness is awake, alert, obeys commands, Oriented to person, place, time, situation. Cardiovascular: Capillary refill < 3 seconds Patient's skin is warm and dry. Respiratory: Airway is patent Trachea midline Respiratory effort is even, unlabored. GI: No deficits noted. : No deficits noted. Derm: Injured forehead post fall, head wrapped with kirlex. Musculoskeletal: No deficits noted. Vital Signs: 04:52 BP 165 / 63; Pulse 69; Resp 18; Pulse Ox 99% ; ke1 04:54 Temp 98.2; ke1 04:54 Weight 89.36 kg (R); Height 5 ft. 2 in. (157.48 cm); Pain 4/10; lp1 06:23 BP 148 / 63; Pulse 76; Resp 18; Pulse Ox 100% ; ke1 04:54 Body Mass Index 36.03 (89.36 kg, 157.48 cm) lp1 [place] Coma Score: 04:57 Eye Response: spontaneous(4). Verbal Response: oriented(5). Motor Response: obeys lp1 commands(6). Total: 15. 05:19 Eye Response: spontaneous(4). Verbal Response: oriented(5). Motor Response: obeys ke1 commands(6). Total: 15. 05:52 Eye Response: spontaneous(4). Verbal Response: oriented(5). Motor Response: obeys brandon commands(6). Total: 15. 05:57 Eye Response: spontaneous(4). Verbal Response: oriented(5). Motor Response: obeys brandon commands(6). Total: 15. Trauma Score (Adult): 04:57 Eye Response: spontaneous(1); Verbal Response: oriented(1); Motor Response: obeys lp1 commands(2); Systolic BP: > 89 mm Hg(4); Respiratory Rate: 10 to 29 per min(4); [place] Score: 15; Trauma Score: 12 05:19 Eye Response: spontaneous(1); Verbal Response: oriented(1); Motor Response: obeys ke1 commands(2); Systolic BP: > 89 mm Hg(4); Respiratory Rate: 10 to 29 per min(4); [place] Score: 15; Trauma Score: 12 ED Course: 04:25 Patient arrived in ED. mw2 04:32 Guero Espana MD is Attending Physician. brandon 04:40 Jeanette Benites RN is Primary Nurse. ke1 04:49 CT Head C Spine In Process Unspecified. EDMS 04:55 Triage completed. lp1 04:58 Arm band placed on. lp1 05:22 Patient maintains SpO2 saturation greater than 95% on room air. ke1 05:23 Bed in low position. Call light in reach. Side rails up X 1. Side rails up X2. ke1 05:56 Assist provider with laceration repair using sutures. Set up tray. Performed by Guero Espana MD. 06:25 IV discontinued. ke1 Administered Medications: 05:55 Not Given (Patient Refused): Tetanus-Diphtheria Toxoid Adult 0.5 ml IM once ke1 06:01 Drug: Neosporin (seuuzivp-aauqslrhbc-[id number]) Ointment 1 application Route: Topical; ke1 Site: forehead; Intake: 06:25 PO: 0ml; Total: 0ml. ke1 06:25 x1 urine ke1 Output: 06:25 Other: 1; Total: 0ml. ke1 06:25 x1 urine ke1 Outcome: 05:59 Discharge ordered by . [facility] 06:25 Discharged to home via wheelchair. ke1 06:25 Condition: good 06:25 Discharge instructions given to patient. 06:25 Patient's length of stay was not longer than 2 hours. ke1 06:27 Patient left the ED. ke1 Signatures: Dispatcher [employer] EDMS Guero Espana MD MD cha Pena, Laura, RN RN lp1 Livier Abreu mw2 Jeanette Benites RN RN ke1 Corrections: (The following items were deleted from the chart) 05:57 05:56 Assist provider with laceration repair using sutures. Set up tray. Performed by kellen Espana MD Dressed with Neosporin, ke1
--- NOTE | 2021-08-21 06:00 | EDPHYS ---
Physician Documentation [facility] Name: Carolyn Ortega Age: 71 yrs Sex: Female : 1950 Arrival Date: 08/21/2021 Time: 04:25 Bed 15 Private MD: ED Physician Guero Espana HPI: 08/21 05:52 This 71 yrs old Female presents to ER via EMS with complaints of fall hit brandon head, laceration. 05:52 The patient or guardian reports a laceration, 2.5 cm(s), pain. The complaints affect brandon the forehead. Context of injury: The problem was sustained at home. Onset: The symptoms/episode began/occurred just prior to arrival. Associated signs and symptoms: Loss of consciousness: This patient did not experience any loss of consciousness. Severity of symptoms: At their worst the symptoms were mild, in the emergency department the symptoms are unchanged. The patient has not experienced similar symptoms in the past. Historical: - Allergies: 04:55 benzocaine; lp1 04:55 Hydrocodone-Acetaminophen; lp1 04:55 Iodine; lp1 04:55 PENICILLINS; lp1 04:55 Sulfa (Sulfonamide Antibiotics); lp1 - Home Meds: 04:55 levothyroxine 175 mcg oral tab once daily [Active]; Tresiba FlexTouch U-100 100 unit/mL lp1 (3 mL) subcutaneous inpn [Active]; metoprolol tartrate 25 mg Oral tab 1 tab 2 times per day [Active]; - PMHx: 04:55 Diabetes - IDDM; Hypothyroidism; Hypertensive disorder; lp1 - PSHx: 04:55 hysterecomy; lp1 - Immunization history:: Client reports having NOT received the Covid vaccine. - Social history:: Smoking status: Patient denies any tobacco usage or history of. - Immunization history: Last tetanus immunization: unknown. - Family history:: not pertinent. ROS: 05:52 Constitutional: Negative for fever, chills, and weight loss, Eyes: Negative for injury, brandon pain, redness, and discharge, ENT: Negative for injury, pain, and discharge, Neck: Negative for injury, pain, and swelling, Cardiovascular: Negative for chest pain, palpitations, and edema, Respiratory: Negative for shortness of breath, cough, wheezing, and pleuritic chest pain, Abdomen/GI: Negative for abdominal pain, nausea, vomiting, diarrhea, and constipation, Back: Negative for injury and pain, : Negative for injury, bleeding, discharge, and swelling, MS/Extremity: Negative for injury and deformity, Neuro: Negative for headache, weakness, numbness, tingling, and seizure, Psych: Negative for depression, anxiety, suicide ideation, homicidal ideation, and hallucinations, Allergy/Immunology: Negative for hives, rash, and allergies, Endocrine: Negative for neck swelling, polydipsia, polyuria, polyphagia, and marked weight changes, Hematologic/Lymphatic: Negative for swollen nodes, abnormal bleeding, and unusual bruising. 05:52 Skin: Positive for laceration(s), of the forehead. Exam: 05:52 Constitutional: This is a well developed, well nourished patient who is awake, alert, brandon and in no acute distress. Eyes: Pupils equal round and reactive to light, extra-ocular motions intact. Lids and lashes normal. Conjunctiva and sclera are non-icteric and not injected. Cornea within normal limits. Periorbital areas with no swelling, redness, or edema. ENT: Nares patent. No nasal discharge, no septal abnormalities noted. Tympanic membranes are normal and external auditory canals are clear. Oropharynx with no redness, swelling, or masses, exudates, or evidence of obstruction, uvula midline. Mucous membranes moist. Neck: Trachea midline, no thyromegaly or masses palpated, and no cervical lymphadenopathy. Supple, full range of motion without nuchal rigidity, or vertebral point tenderness. No Meningismus. Chest/axilla: Normal chest wall appearance and motion. Nontender with no deformity. No lesions are appreciated. Cardiovascular: Regular rate and rhythm with a normal S1 and S2. No gallops, murmurs, or rubs. Normal PMI, no JVD. No pulse deficits. Respiratory: Lungs have equal breath sounds bilaterally, clear to auscultation and percussion. No rales, rhonchi or wheezes noted. No increased work of breathing, no retractions or nasal flaring. Abdomen/GI: Soft, non-tender, with normal bowel sounds. No distension or tympany. No guarding or rebound. No evidence of tenderness throughout. Back: No spinal tenderness. No costovertebral tenderness. Full range of motion. Female : Normal external genitalia. Skin: Warm, dry with normal turgor. Normal color with no rashes, no lesions, and no evidence of cellulitis. MS/ Extremity: Pulses equal, no cyanosis. Neurovascular intact. Full, normal range of motion. Neuro: Awake and alert, GCS 15, oriented to person, place, time, and situation. Cranial nerves II-XII grossly intact. Motor strength 5/5 in all extremities. Sensory grossly intact. Cerebellar exam normal. Normal gait. Psych: Awake, alert, with orientation to person, place and time. Behavior, mood, and affect are within normal limits. 05:52 Head/face: Noted is a laceration(s), that is deep, that is jagged, 2.54 cm(s). Vital Signs: 04:52 BP 165 / 63; Pulse 69; Resp 18; Pulse Ox 99% ; ke1 04:54 Temp 98.2; ke1 04:54 Weight 89.36 kg (R); Height 5 ft. 2 in. (157.48 cm); Pain 4/10; lp1 06:23 BP 148 / 63; Pulse 76; Resp 18; Pulse Ox 100% ; ke1 04:54 Body Mass Index 36.03 (89.36 kg, 157.48 cm) lp1 Chancellor Coma Score: 04:57 Eye Response: spontaneous(4). Verbal Response: oriented(5). Motor Response: obeys lp1 commands(6). Total: 15. 05:19 Eye Response: spontaneous(4). Verbal Response: oriented(5). Motor Response: obeys ke1 commands(6). Total: 15. 05:52 Eye Response: spontaneous(4). Verbal Response: oriented(5). Motor Response: obeys brandon commands(6). Total: 15. 05:57 Eye Response: spontaneous(4). Verbal Response: oriented(5). Motor Response: obeys brandon commands(6). Total: 15. Trauma Score (Adult): 04:57 Eye Response: spontaneous(1); Verbal Response: oriented(1); Motor Response: obeys lp1 commands(2); Systolic BP: > 89 mm Hg(4); Respiratory Rate: 10 to 29 per min(4); Bebeto Score: 15; Trauma Score: 12 05:19 Eye Response: spontaneous(1); Verbal Response: oriented(1); Motor Response: obeys ke1 commands(2); Systolic BP: > 89 mm Hg(4); Respiratory Rate: 10 to 29 per min(4); Chancellor Score: 15; Trauma Score: 12 Laceration: 05:56 Wound Repair of 2.5cm ( 1.0in ) subcutaneous laceration to forehead. Irregularly brandon shaped.. Distal neuro/vascular/tendon intact. Anesthesia: none with 0 mls of none. Wound prep: Simple cleansing with hibiclenz by me. Skin closed with 4 5-0 Prolene using interrupted sutures and sterile technique. Dressed with Neosporin, pressure dressing. Patient tolerated well. MDM: 04:32 Patient medically screened. brandon 05:57 Differential diagnosis: Contusion of Hematoma on Laceration of Intracranial bleed- brandon Concussion. Data reviewed: vital signs, nurses notes, radiologic studies, CT scan. Data interpreted: awake overnight monitor: rate is 99 beats/min, rhythm is regular, Pulse oximetry: on 99L(s) per nasal canula, is 99 %. Test interpretation: by ED physician or midlevel provider:. Counseling: I had a detailed discussion with the patient and/or guardian regarding: radiology results, the need for outpatient follow up, for definitive care, a family practitioner. 08/21 04:26 Order name: CT Head C Spine mw2 08/21 04:26 Order name: Dressing - Wound; Complete Time: 05:52 mw2 08/21 04:26 Order name: Gloves, Sterile; Complete Time: 05:51 mw2 08/21 04:26 Order name: Setup Suture Tray; Complete Time: 05:52 mw2 Administered Medications: 05:55 Not Given (Patient Refused): Tetanus-Diphtheria Toxoid Adult 0.5 ml IM once ke1 06:01 Drug: Neosporin ([id number]) Ointment 1 application Route: Topical; ke1 Site: forehead; Disposition Summary: 08/21/21 05:59 Discharge Ordered Location: Home brandon Problem: new brandon Symptoms: have improved brandon Condition: Stable brandon Diagnosis - Fall on same level, unspecified brandon - Contusion of other part of head brandon - Laceration without foreign body of other part of head brandon Followup: brandon - With: Private Physician - When: 2 - 3 days - Reason: Recheck today's complaints, Continuance of care, Re-evaluation by your physician Discharge Instructions: - Discharge Summary Sheet brandon - Fall Prevention in the Home, Adult brandon - Laceration Care, Adult brandon - Facial Laceration brandon - Laceration Care, Adult, [id number] brandon - Facial Laceration, [id number] brandon - Fall Prevention in the Home, Adult, [id number] brandon Forms: - Medication Reconciliation Form brandon - Thank You Letter brandon - Antibiotic Education brandon - Prescription Opioid Use brandon Signatures: Dispatcher [employer] EDGuero Estrada MD MD cha Pena, Laura, RN RN lp1 Livier Abreu mw2 Jeanette Benites RN RN ke1
[2021-08-21 06:32] VITALS: TEMP 98.2
[2021-08-21 06:33] VITALS: BP 148/63; O2SAT 100
--- NOTE | 2021-08-21 20:00 | RAD REPORT ---
EXAM DESCRIPTION: CT - [id number] - 08/21/2021 6:30 am CLINICAL HISTORY: 71 years Female fall TECHNIQUE: Noncontrast CT head and cervical spine with coronal and sagittal reformats. All CT scans at this facility use dose modulation, iterative reconstruction, and/or weight based dosing when appro priate to reduce radiation dose to as low as reasonably achievable. COMPARISON: None. FINDINGS: HEAD: Brain: Parenchymal volume loss. Chronic small vessel disease. No intracranial hemorrhage, midline robert ft, mass or mass effect. No obvious large acute territorial infarction. Ventricles: No hydrocephalus. Orbits: Unremarkable. Sinus: Visualized portions are clear. Mastoid: clear Osseous: Unremarkable. Soft tissues: Unremarkable. CERVICAL SPINE: Vertebra: No acute fracture. Congenital nonfusion of the posterior arch of C1. Degenerative change: Mild multilevel degenerative changes. No high grade spinal canal stenosis. Alignment: No spondylolisthesis. Soft tissues: Unremarkable. Lungs: Visualized lung apices are clear. IMPRESSION: Head: 1. No acute intracranial findings. Cervical spine: 1. No acute cervical spine pathology. Electronically signed by: Armando Gomez MD 08/21/2021 5:15 AM CDT Due to temporary technical issues with the PACS/Fluency reporting system, reports are being signed by the in house radiologists without review as a courtesy to insure prompt reporting. The interpreting radiologist is fully responsible for the content of the report.
== END 2021-08-21 06:27 | disposition home or self-care (01) ==
LOC: ER 04:24
PROC: 0JQ10ZZ Repair Face Subcutaneous Tissue and Fascia, Open Approach (ICD-10-PCS; principal; 2021-08-21)
DX: S01.81XA Laceration without foreign body of other part of head, initial encounter (principal); W18.30XA Fall on same level, unspecified, initial encounter; Y92.009 Unspecified place in unspecified non-institutional (private) residence as the place of occurrence of the external cause; E11.9 Type 2 diabetes mellitus without complications; Z79.4 Long term (current) use of insulin; E03.9 Hypothyroidism, unspecified; I10 Essential (primary) hypertension
CPT/HCPCS: 70450; 72125; 99284